=== PATIENT | male | born 2000 | race Caucasian/White ===

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

== ENCOUNTER 2022-06-27 18:36 | Emergency (ER) | payer MEDICAID, OTHER ==
[2022-06-27 19:40] VITALS: BP 140/85; PULSE 106
== END 2022-06-27 20:27 | disposition home or self-care (01) ==
LOC: JP.ED 18:36
DX: S80.02XA Contusion of left knee, initial encounter (principal); R07.89 Other chest pain; V49.50XA Passenger injured in collision with unspecified motor vehicles in traffic accident, initial encounter; Y92.410 Unspecified street and highway as the place of occurrence of the external cause
CPT/HCPCS: 71046; 73562-LT; 99284

== ENCOUNTER 2022-11-12 10:30 | Emergency (ER) | payer MEDICAID ==
[2022-11-12] MEDS ORDERED: LORazepam 1 MG Tab PO ONE (11:07)
[2022-11-12] MEDS ORDERED: Ketorolac 30 MG/ML SDV IM ONE (11:07)
[2022-11-12 11:38] VITALS: BP 148/80; PULSE 99
[2022-11-12 11:48] LABS: TROPONIN I HIGH SENSITIVITY 5.7 pg/mL (<=60.3)
== END 2022-11-12 12:35 | disposition home or self-care (01) ==
LOC: JP.ED 10:30
DX: M54.6 Pain in thoracic spine (principal); F17.210 Nicotine dependence, cigarettes, uncomplicated
CPT/HCPCS: 36415; 71046; 71046-26; 80048; 84484; 85025; 93005; 93010; 96372; 99282; 99284; A9270-GY; J1885